=== PATIENT | female | born 1995 | race Caucasian/White ===

== ENCOUNTER 2019-08-25 10:28 | Outpatient (RCR) | payer OTHER, BC, SELFPAY ==
[2019-08-10 10:30] VITALS: BP 114/73; PULSE 120
[2019-08-15 09:33] VITALS: BP 111/71; PULSE 118
[2019-08-18 08:21] VITALS: BP 105/63; PULSE 110
[2019-08-22 08:45] VITALS: BP 111/60; PULSE 118
--- NOTE | ~2019-08-25 | US_ITS ---
EXAMINATION: US OB BPP wo non-stress DATE: 08/22/2019 09:06 CDT INDICATION: Evaluate well-being. IUGR. TECHNIQUE: Real-time transabdominal obstetric ultrasound. FINDINGS: Comparison to ultrasound dated 08/18/2019 There is a single living fetus in vertex presentation. The placenta is posterior without placenta pr evia. cardiac activity and movement is noted with a heart rate of 149 beats per minute. Biophysical profile: breathin of 2 movement: 2 of 2 tone: 2 of 2 Amniotic flud pocket: 2 of 2 Total score: 8 of 8 IMPRESSION: 1. Single living intrauterine in vertex presentation. 2: Total biophysical profile score of 8/8. Reviewed, dictated and finalized at location A.
--- NOTE | ~2019-08-25 | US_ITS ---
EXAMINATION: US OB BPP wo non-stress DATE: 08/10/2019 10:47 INDICATION: Small for gestational age, third trimester TECHNIQUE: Real-time pelvic ultrasound was performed. The interpreting radiologist was not present fo r the study. COMPARISON: None. FINDINGS: There is a single living fetus in vertex presentation. The placenta is fundal/posterior. heart rate is 142 beats per minute (bpm). Biophysical profile performed by the technologist: breathing (30 sec sustained breathing in 30 minutes): 2 out of 2 movement (3 gross body movements in 30 minutes): 2 out of 2 tone (one episode of udsankp-bmbvoybqu-jcnfrke limb movement): 2 out of 2 Amniotic fluid pocket (2 cm): 2 out of 2 Total score: 8 out of 8 IMPRESSION: 1. Single living fetus in vertex presentation. 2. Biophysical profile 8 out of 8. Reviewed, dictated and finalized at location A.
--- NOTE | ~2019-08-25 | US_ITS ---
EXAMINATION: US OB BPP wo non-stress DATE: 08/25/2019 11:31 CDT INDICATION: Evaluate well-being. TECHNIQUE: Real-time transabdominal obstetric ultrasound. FINDINGS: Comparison to 08/22/2019 There is a single living fetus in vertex presentation. The placenta is posterior without placenta pr evia. cardiac activity and movement is noted with a heart rate of 144 beats per minute. Biophysical profile: breathin of 2 movement: 2 of 2 tone: 2 of 2 Amniotic flud pocket: 2 of 2 Total score: 8 of 8 IMPRESSION: 1. Single living intrauterine in vertex presentation. 2: Total biophysical profile score of 8/8. Reviewed, dictated and finalized at location A.
--- NOTE | ~2019-08-25 | US_ITS ---
EXAMINATION: US OB BPP wo non-stress DATE: 08/18/2019 09:02 INDICATION: Intrauterine growth retardation, third trimester TECHNIQUE: Real-time pelvic ultrasound was performed. The interpreting radiologist was not present fo r the study. COMPARISON: 08/10/2019 FINDINGS: There is a single living fetus in vertex presentation. The placenta is posterior. heart rate is 138 beats per minute (bpm). breathing is present but not sustained for 30 seconds. Biophysical profile performed by the technologist: breathing (30 sec sustained breathing in 30 minutes): 0 out of 2 movement (3 gross body movements in 30 minutes): 2 out of 2 tone (one episode of hjskenh-nsvswvjqx-zotofjo limb movement): 2 out of 2 Amniotic fluid pocket (2 cm): 2 out of 2 Total score: 6 out of 8 IMPRESSION: 1. Single living fetus in vertex presentation. 2. Biophysical profile 6 out of 8. breathing present but not sustained for 30 seconds. Reviewed, dictated and finalized at location B. IMPRESSION: 1. Single living fetus in vertex presentation. 2. Biophysical profile 6 out of 8. breathing present but not sustained fo r 30 seconds.
[2019-08-25 10:55] VITALS: BP 102/64; PULSE 108
== END 2019-08-31 07:53 | disposition home or self-care (01) ==
LOC: ANHOBOP 10:28
PROVIDERS: Visit Provider Obstetrics & Gynecology
DX: O36.5930 Maternal care for other known or suspected poor fetal growth, third trimester, not applicable or unspecified (principal); Z3A.35 35 weeks gestation of pregnancy; Z3A.36 36 weeks gestation of pregnancy; Z3A.37 37 weeks gestation of pregnancy
CPT/HCPCS: 59025; 76819

== ENCOUNTER 2019-08-30 06:02 | Inpatient (IN) | payer OTHER, BC, SELFPAY ==
[2019-08-30] VITALS (110 sets, daily range): BP systolic 77–128; BP diastolic 33–98; PULSE 91–248; RESP 18; TEMP 36.8–37.7; O2SAT 96–100; BMI 30.9
[2019-08-30 06:50] LABS: Basophils Absolute Auto 0.1 K/mm3 (0.0-0.1); Basophils Percent Auto 0.7 % (0.2-1.2); Eosinophils Absolute Auto 0.1 K/mm3 (0-0.3); Eosinophils Percent Auto 0.9 % (0-4.4); Hematocrit 34.8 % (37.0-47.0); Hemoglobin 11.6 g/dL (12.0-15.0); Immature Granulocyte Absolute 0.44 K/mm3 (0.00-0.031); Immature Granulocyte Percent A 4.4 % (0-0.5); Lymphocytes Absolute Auto 2.26 K/mm3 (0.9-3.2); Lymphocytes Percent Auto 22.6 % (18.3-44.2); Mean Corpuscular HGB Conc 33.3 g/dl (32-36); Mean Platelet Volume 9.3 fl (7.4-10.4); Monocytes Absolute Auto 0.7 K/mm3 (0.1-0.6); Neutrophils Absolute Auto 6.4 K/mm3 (1.3-6.7); Neutrophils Percent Auto 64.4 % (45.5-73.1); Platelet Count Result 245 k/mm3 (150-375); Red Blood Count 3.74 M/mm3 (4.2-5.4); Red Cell Distribution Width 13.6 % (11.5-14.5)
[2019-08-30] MEDS: LACTATED RINGERS 1,000 ML 125 ML IV CONT ×2 (06:52→10:47)
[2019-08-30] MEDS: OXYTOCIN 30 UNITS/NS 500 ML 30 UNITS/500 ML BAG IV CONT (06:53)
--- NOTE | 2019-08-30 07:06 | LDADM ---
This patient, Mihir Bejarano, was admitted to Labor/Delivery/Recovery 103 on 08/30/19 at 06:02. Plans for labor, pain management and were discussed with patient. Patient/family oriented to hospital policies and general routines including ID bracelet, bed and alarms, visiting hours, pain management, procedures, bathroom and other care routines, personal items, smoking policy, room service/diet and guest tray routines, security routines, and visiting hours. Patient/Family are encouraged to report perceived risks to care and to ask questions if they do not understand what they are told or what they should do. See OBIX for further documentation.
[2019-08-30 07:43] LABS: Rapid Plasma Reagin Non-Reactive (NonReactive)
--- NOTE | 2019-08-30 11:53 | WPDANESEPP ---
Anes - Eval Pre Procedure Procedure: Labor epidural Date/Time: 08/30/19 10:30 Surgeon: Artis Preop Diagnosis: Labor Pain Pre Op Diagnosis: Induction of Labor Patient Data Age: 23 Gender: F Height: 5 ft Weight: 72 kg Last Vital Signs Temp 37.2 C 08/30/19 11:06 Pulse 105 H 08/30/19 11:46 BP 92/55 L 08/30/19 11:46 Pulse Ox 100 08/30/19 11:43 Allergies Allergy/AdvReac Type Severity Reaction Status Date / Time No Known Allergies Allergy Verified 08/11/19 12:32 Home Medications Medication Instructions Recorded Confirmed Type PNV cmb#95-ferrous fumarate-FA 1 tablet PO DAILY 08/11/19 08/11/19 History [] aspirin [Aspirin Low Dose] 81 mg PO DAILY 08/11/19 08/11/19 History Laboratory Tests 08/30/19 08/30/19 08/30/19 06:43 06:43 06:43 WBC 10.0 K/mm3 K/mm3 (4.5-10.0) RBC 3.74 M/mm3 L M/mm3 (4.2-5.4) Hgb 11.6 g/dL L g/dL (12.0-15.0) Hct 34.8 % L % (37.0-47.0) MCV 93.0 fl fl (80-100) MCH 31.0 pg pg (26-34) MCHC 33.3 g/dl g/dl (32-36) RDW 13.6 % % (11.5-14.5) Plt Count 245 k/mm3 k/mm3 (150-375) MPV 9.3 fl fl (7.4-10.4) Immature Gran % (Auto) 4.4 % H % (0-0.5) Neut % (Auto) 64.4 % % (45.5-73.1) Lymph % (Auto) 22.6 % % (18.3-44.2) [place] % (Auto) 7.0 % % (2.6-8.5) Eos % (Auto) 0.9 % % (0-4.4) Baso % (Auto) 0.7 % % (0.2-1.2) Lymph # (Auto) 2.26 K/mm3 K/mm3 (0.9-3.2) [place] # (Auto) 0.7 K/mm3 H K/mm3 (0.1-0.6) Eos # (Auto) 0.1 K/mm3 K/mm3 (0-0.3) Baso # (Auto) 0.1 K/mm3 K/mm3 (0.0-0.1) Abs Immat Gran (auto) 0.44 K/mm3 H K/mm3 (0.00-0.031) Absolute Neuts (auto) 6.4 K/mm3 K/mm3 (1.3-6.7) Absolute Nucleated RBC 0.0 K/mm3 K/mm3 (0.0-0.012) Nucleated RBC % 0.0 % % (0.0-0.2) RPR Non-reactive (NonReactive) Blood Type O Positive Antibody Screen Negative : gestational age (JESSICA 09/10/19) Patient hx anesthesia problems: none Family hx anesthesia problems: none [facility] Family History Family History (Updated 08/11/19 @ 12:36 by Maryana Vora RN) Grandparent Breast cancer Heart attack Cerebrovascular accident Social History Social History Smoking status: Never smoker Second hand tobacco smoke exposure: No Substance use: never Spiritual care concerns: No Exam Day of Procedure 08/30/19 11:53 Patient weight: normal Heart: regular rate and rhythm Lungs: normal air movement Airway: Mallampati scale class 1 Neurological: alert and oriented and dysarthria
--- NOTE | 2019-08-30 11:59 | WPDHPUPDATE1 ---
History and Physical Update Update Date/Time: 08/30/19 11:59 History and Physical has been reviewed, including an updated exam of the patient. There are NO changes in the patient's condition. Risks, benefits, and alternatives have been discussed and questions answered. Patient agrees to proceed with procedure.
--- NOTE | 2019-08-30 12:00 | WPDOBADMIT ---
Obstetrics - Admit Note Admission Note: record reviewed. No pertinent additions to the history and/or any subsequent changes in the physical findings that are not consistent with the expected course of the were found. Additions to the history and/or subsequent changes in the physical findings follow. None.
[2019-08-30] MEDS: PHENYLEPHRINE 1,000 MCG/10 ML SYRINGE 100 MCG IV PUSH (12:48)
[2019-08-30] MEDS: ONDANSETRON INJ 4 MG/2 ML VIAL IV PUSH (13:43)
--- NOTE | 2019-08-30 16:04 | PM.OBPRVD ---
OB - Delivery Note Procedure Delivery date: 08/30/19 Route of delivery: Laceration description: Perineal - 2nd Degree Delivery repair: chromic Specimen: Yes Estimated blood loss (mL): 300 Anesthesia type: Epidural Disposition: floor Narrative: Patient prepped draped usual manner for this procedure. Maternal expulsive efforts readily delivered vertex. Nuchal cord x2 was noted and cord at this point was clamped and cut. Rest of baby was readily delivered without difficulty placed on maternal abdomen. Cervix vagina and vulva were inspected second-degree laceration was noted and proximally using 2 0 chromic in a running interlocking manner on the vaginal tissue deep tissue approximated interrupted sutures and a subcuticular layer with good approximation of the perineum. At this point the placenta delivered without difficulty spontaneously and was uterus at this point was well contracted. Immediate postoperative condition of mother and baby were both excellent. Baby Weeks of gestation at delivery: 38 gender: Male Weight (pounds): 5 Weight (ounces): 13 presentation: vertex score one minute: 8 score five minutes: 8
--- NOTE | 2019-08-30 19:20 | OBPPTRN ---
Patient transferred to post room #291 via wheelchair with baby in bassinet. Support person present. Oriented to unit, room, information board, rooming in, admission packet and security measures. Patient verbalizes understanding.
[2019-08-31 05:21] LABS: Hematocrit 31.1 % (37.0-47.0); Hemoglobin 10.4 g/dL (12.0-15.0)
--- NOTE | 2019-08-31 08:01 | PM.OBDSVD ---
OB - DS: Summary OB Procedures : None OB Procedures Intrapartum: Spontaneous Vag Delivery OB Procedures: : None Time Spent with Patient Time attestation: Total time spent providing and/or coordinating discharge services: DS: Data Data Completed and Pending Pending studies at discharge: Pending at discharge 08/30/19 15:57 Surgical [PTH] Routine Labs on day of discharge: Labs from last 24 hours 08/31/19 08/30/19 04:11 06:43 Hgb 10.4 L Hct 31.1 L Blood Type O Positive Antibody Screen Negative Discharge Plan Discharge Discharging Clinician: Yohannes Wisdom Patient Disposition: Home, Self-Care Activity: as tolerated Diet: as tolerated Patient Instructions: Antibiotic Form Stand Alone Forms: General Discharge Information Follow-up/Referrals: Yohannes Wisdom MD [Physician] - 3 Weeks Discharge Medications: New hydrocodone-acetaminophen 5-325 mg Tablet 1 tab PO Q3H PRN (Reason: Moderate Pain (4-6)) Qty: 20 RF: 0 ibuprofen 600 mg Tablet 600 mg PO Q6H PRN (Reason: Cramping) Qty: 30 RF: 0 Continued PNV cmb#95-ferrous fumarate-FA [] 28 mg iron- 800 mcg Tablet 1 tablet PO DAILY RF: 0 Discontinued aspirin [Aspirin Low Dose] 81 mg Tablet,Delayed Release (Dr/Ec) 81 mg PO DAILY RF: 0 Date of admission: 08/30/19 06:02 Primary Care Provider: UNKNOWN,DOCTOR Admitting Provider: Yohannes Wisdom Attending physician on admission: Yohannes Wisdom
[2019-08-31 08:30] VITALS: BP 109/70; PULSE 109; RESP 18; TEMP 36.5; O2SAT 98
--- NOTE | 2019-08-31 09:18 | WPDANLDPN2 ---
Anes-Prog Note L&D Date/Time: 08/31/19 09:18 Comfortable throughout: labor and delivery Neuraxial method: epidural Epidural/Spinal procedure site: clean & non-tender Neuro status: Neuro function grossly intact. Cardiovascular status: normal Respiratory status: normal Airway patency: baseline Mental status: baseline Post-Op hydration status: normal Vital Signs: Last Vital Signs Temp 37.1 C 08/30/19 19:45 Pulse 110 H 08/30/19 19:45 Resp 18 08/30/19 19:45 BP 104/66 08/30/19 19:45 Pulse Ox 97 08/30/19 19:45 I/O: Intake & Output 08/30/19 08/31/19 08/31/19 23:59 07:59 15:59 Intake Total 0 Output Total 95 Balance -95 Post-procedural complaints: none Patient feedback: Patient satisfied with anesthetic care.
[2019-08-31] MEDS: TETANUS,DIPHTHERIA,AC PERTUSSIS ADULT (0.5 ML) BOOSTRIX IM (12:11)
[2019-09-01 09:50] VITALS: BP 114/72; PULSE 98; RESP 16; TEMP 36.8; O2SAT 99
== END 2019-08-31 16:52 | disposition home or self-care (01) | DRG 807 ==
LOC: ANHLDR 06:04 → ANHOB2 19:21
PROVIDERS: Admitting Provider Obstetrics & Gynecology; Visit Provider Obstetrics & Gynecology
DX: O69.81X0 Labor and delivery complicated by cord around neck, without compression, not applicable or unspecified (principal); Z37.0 Single live birth; Z3A.38 38 weeks gestation of pregnancy; O70.1 Second degree perineal laceration during delivery
CPT/HCPCS: 36415; 85014; 85018; 85025; 86592; 86850; 86900; 86901; 88307; 90715; A9270; J2370; J2405; J2590; J2795; J7120

== ENCOUNTER 2020-01-06 20:43 | Emergency (ER) | payer OTHER, BC, SELFPAY ==
--- NOTE | ~2020-01-06 | CT_ITS ---
EXAMINATION: CT abdomen pelvis w con DATE: 01/07/2020 00:42 INDICATION: Left upper abdominal pain TECHNIQUE: Computed tomography (CT) of the abdomen and pelvis was performed with 100 mL Omnipaque-350 intravenous contrast. Automated exposure control and iterative reconstruction technique were employe d. The dose-length product was 331.67 mGy-cm. COMPARISON: None FINDINGS: Lung bases are clear. Heart size is normal. No pericardial or pleural effusion. Liver, gallbladder, s pleen, pancreas, bilateral adrenal glands and kidneys are normal. Bowels including the appendix are n ormal. Bladder is normal. T-shaped IUD in expected position within the endometrial canal. 8 cm long, 2.7 cm diameter tubular fluid-filled structure at the left adnexa most likely representing a hydrosal pinx. No free intraperitoneal gas or fluid. No pathologically enlarged abdominal or pelvic lymphadeno panfilo. 23 degree thoracolumbar dextroscoliosis between T12 and L3. IMPRESSION: 1. 8 x 2.7 cm tubular fluid filled structure at the left adnexa most likely hydrosalpinx. No adjacent inflammatory stranding or other acute intra-abdominal/pelvic process. 2. IUD in expected position. Reviewed, dictated and finalized at location A. IMPRESSION: 1. 8 x 2.7 cm tubular fluid filled structure at the left adnexa most likely hyd rosalpinx. No adjacent inflammatory stranding or other acute intra-abdominal/pe lvic process. 2. IUD in expected position.
[2020-01-06 20:57] VITALS: BP 106/90; PULSE 95; RESP 16; TEMP 36.7; O2SAT 99
[2020-01-06 21:10] LABS: Basophils Absolute Auto 0.1 K/mm3 (0.0-0.1); Eosinophils Absolute Auto 0.1 K/mm3 (0-0.3); Eosinophils Percent Auto 0.5 % (0-4.4); Hematocrit 42.9 % (37.0-47.0); Hemoglobin 14.9 g/dL (12.0-15.0); Immature Granulocyte Absolute 0.04 K/mm3 (0.00-0.031); Immature Granulocyte Percent A 0.4 % (0-0.5); Lymphocytes Absolute Auto 3.62 K/mm3 (0.9-3.2); Lymphocytes Percent Auto 32.7 % (18.3-44.2); Mean Corpuscular HGB Conc 34.7 g/dl (32-36); Mean Corpuscular Hemoglobin 29.9 pg (26-34); Mean Corpuscular Volume 86.1 fl (80-100); Monocytes Absolute Auto 0.8 K/mm3 (0.1-0.6); Monocytes Percent Auto 7.5 % (2.6-8.5); Neutrophils Absolute Auto 6.4 K/mm3 (1.3-6.7); Neutrophils Percent Auto 57.9 % (45.5-73.1); Platelet Count Result 394 k/mm3 (150-375); Red Blood Count 4.98 M/mm3 (4.2-5.4); Red Cell Distribution Width 11.8 % (11.5-14.5); White Blood Count 11.1 K/mm3 (4.5-10.0)
[2020-01-06 21:13] LABS: Add Urine Microscopic? NO; Appearance Urine Clear (Clear); Bilirubin Urine Negative (Negative); Blood Urine Negative (Negative); Color Urine Colorless (Yellow); Glucose Urine UA Negative (Negative); Ketones Urine Negative (Negative); Leukocyte Esterase Ur Negative LEU/UL (Negative); Nitrate Urine Negative (Negative); Protein Urine Negative (Negative); Specific Grav Ur 1.005 (1.001-1.035); Urobilinogen Urine Negative mg/dL (<2.0)
[2020-01-06 21:22] LABS: Alanine Aminotransferase 36 U/L (4-35); Albumin Level 5.1 g/dL (3.5-5.1); Alkaline Phosphatase 90 U/L (38-126); Anion Gap 12 mmol/L (8-16); Aspartate Amino Transferase 28 U/L (14-36); Bilirubin,Total 0.2 mg/dL (0.2-1.3); Blood Urea Nitrogen 10 mg/dL (7-17); Calcium 10.1 mg/dL (8.4-10.2); Carbon Dioxide 24 mmol/L (22-30); Chloride 101 mmol/L (98-107); Estimated CRCL calculation 81 ml/min; Estimated Glomerular Filt Rate > 60; Glucose 98 mg/dL (65-105); Lipase 42 U/L (23-300); Potassium 3.9 mmol/L (3.4-5.0); Sodium 137 mmol/L (137-145)
--- NOTE | 2020-01-06 23:21 | ED.ABDPAIN ---
HPI - Abdominal Pain General Chief Complaint: Abdominal Pain Stated Complaint: left sided flank pain Time Seen by Provider: 01/06/20 22:48 Source: patient Mode of arrival: ambulatory Limitations: no limitations History of Present Illness HPI narrative: This patient is a 24 year old female who presents for evaluation of left flank pain since . She reports constant left flank pain. She denies exacerbating or alleviating factors. She denies associated nausea, vomiting, fever chills or urinary complaints. She also denies trauma. MD elicited complaint: flank pain Related Data Allergies Allergy/AdvReac Type Severity Reaction Status Date / Time No Known Allergies Allergy Verified 01/06/20 20:43 Review of Systems Review of Systems: All systems reviewed & are unremarkable except as noted in HPI and below Constitutional: Constitutional: Denies chills and Denies fever(s) ENT: Denies sore throat Respiratory: Respiratory: Denies cough and Denies dyspnea Gastrointestinal: Gastrointestinal: Reports abdominal pain, Denies constipation, Denies diarrhea, Denies nausea and Denies vomiting Genitourinary: Genitourinary: Denies hematuria, Denies dysuria, Reports flank pain and Denies vaginal discharge [facility] Past Medical History Medical History (Updated 01/07/20 @ 03:02 by Inocencia Whipple MD) Patient denies medical problems Family History Family History (System 09/01/19 @ 09:17 by Krissy Helton) Grandparent Breast cancer Heart attack Cerebrovascular accident Social History Social History (System 09/01/19 @ 09:17 by Krissy Helton) Smoking status: Never smoker Second hand tobacco smoke exposure: No Substance use: never Gender identity (if verbalized by the patient): Female Spiritual care concerns: No Exam Narrative: Exam Narrative: GENERAL: Well-appearing, well-nourished, and in no acute distress. HEAD: Normocephalic, atraumatic EYES: PERRLA and EOMI, conjunctiva clear without discharge THROAT:Mucous membranes moist, Oropharynx normal without erythema, exudate, peritonsillar swelling or fluctuance NECK: Supple, without lymphadenopathy or mass RESPIRATORY: No respiratory distress, Airway patent, Respirations non-labored, Clear to auscultation without rales, rhonchi or wheeze HEART: Regular rate and rhythm. No murmur heard. Normal peripheral pulses. ABDOMEN: Soft, TTP left mid flank, left upper q at rib cage, nondistended, normal active bowel sounds. No masses. No rebound or guarding, No organomegaly. EXTREMITIES: No edema, normal strength with full range of motion. SKIN: Warm, dry, normal color without rash NEURO: Alert and oriented x3. CN 2-12 grossly intact. No focal deficits. PSYCH: Normal mood and affect. Course Reevaluation(s) Reevaluation #1: I Discussed with patient that labs CT shows possible CT. Her pain is much improved. Her pain is not located left lower abdomen so I do not think that cystic process in adnexa is relevent. I discussed US is unavailable at this time so I recommended follow up with sweet goods machine operator for evaluation and possible ultrasound. Date: 01/07/20 Time: 02:59 Vital Signs Vital signs: Vital Signs Temperature 98.0 F 01/06/20 20:57 Pulse Rate 95 01/06/20 20:57 Respiratory Rate 16 01/06/20 20:57 Blood Pressure 106/90 01/06/20 20:57 Pulse Oximetry 99 01/06/20 20:57 Temperature 98.0 F 01/06/20 20:57 Pulse Rate 78 01/07/20 03:21 Respiratory Rate 16 01/07/20 03:21 Blood Pressure 122/71 01/07/20 03:21 Pulse Oximetry 100 01/07/20 03:21 MDM - Abdominal Pain Lab Data Attestation: I reviewed the patient's lab results. Result diagrams: 01/06/20 21:01 01/06/20 21:01 Labs: Lab Results 01/06/20 01/06/20 01/06/20 Range/Units 21:01 21:01 21:01 WBC 11.1 H (4.5-10.0) K/mm3 RBC 4.98 (4.2-5.4) M/mm3 Hgb 14.9 D (12.0-15.0) g/dL Hct 42.9 (37.0-47.0) % MCV 86.1 (
[2020-01-06 23:40] VITALS: BP 110/87; PULSE 90; RESP 16; O2SAT 99
[2020-01-06] MEDS: KETOROLAC 30 MG/ML VIAL (*BKC) IV PUSH (23:40)
[2020-01-07 00:23] LABS: Partial Thromboplastin Time 31.7 SECONDS (22.3-36.8)
[2020-01-07 00:25] LABS: D Dimer 0.39 ug/mL (<0.48)
[2020-01-07] MEDS: MORPHINE SULFATE 4 MG/ML INJ IV PUSH (00:53)
[2020-01-07] MEDS: ONDANSETRON INJ 4 MG/2 ML VIAL IV PUSH (00:53)
[2020-01-07 00:54] VITALS: BP 135/81; PULSE 92; RESP 18; O2SAT 99
--- NOTE | 2020-01-07 01:15 | PC.NURSE ---
pt rates pain 2-3 at this time. md notified.
[2020-01-07 01:40] VITALS: BP 118/86; PULSE 73; RESP 18; O2SAT 99
--- NOTE | 2020-01-07 02:13 | PC.NURSE ---
pelvic setup complete on pt.
[2020-01-07 03:21] VITALS: BP 122/71; PULSE 78; RESP 16; O2SAT 100
== END 2020-01-07 03:23 | disposition home or self-care (01) ==
PROVIDERS: Family Medicine; Emergency Provider General Practice; PCP Internal Medicine
DX: N83.202 Unspecified ovarian cyst, left side (principal)
CPT/HCPCS: 36415; 74177; 80053; 81003; 81025; 83690; 85025; 85380; 85610; 85730; 87205; 87491; 87591; 87808; 96374; 96375; 99284; J1885; J2270; J2405; Q9967

== ENCOUNTER 2022-05-30 15:33 | Emergency (ER) | payer OTHER, SELFPAY ==
--- NOTE | 2022-05-30 15:53 | ED.URI ---
HPI - URI/Sore Throat General Chief Complaint: Upper Respiratory Infection Stated Complaint: Sore Throat/Ear Pain Time Seen by Provider: 05/30/22 16:05 Source: patient and RN notes reviewed Mode of arrival: ambulatory Limitations: no limitations History of Present Illness HPI Narrative: 26-year-old female presents with concern for 2 day history of sore throat and ear pain. She reports low-grade temperature. She denies fever, chills, sweats MD elicited complaint: sore throat Related Data Allergies Allergy/AdvReac Type Severity Reaction Status Date / Time No Known Allergies Allergy Verified 05/30/22 15:52 Review of Systems Review of Systems: CONSTITUTIONAL: Reports malaise. Denies chills, sweats, or fever. EYES: Denies visual changes, redness, or discharge. ENT: Denies rhinorrhea, congestion, sinus pain. Reports otalgia and sore throat. CARDIOVASCULAR: Denies chest pain, palpitations, or edema. RESPIRATORY: Denies cough. Denies dyspnea. GASTROINTESTINAL: Denies abdominal pain, nausea, vomiting, diarrhea SKIN: Denies rash or itching. MUSCULOSKELETAL: Denies myalgia. NEUROLOGIC: Denies headache. All systems reviewed & are unremarkable except as noted in HPI and below PMFSH Past Medical History Medical History (Updated 05/30/22 @ 16:34 by Emerald Tate NP) Patient denies medical problems Family History Family History (System 09/01/19 @ 09:17 by Krissy Helton) Grandparent Breast cancer Heart attack Cerebrovascular accident Social History Social History (System 09/01/19 @ 09:17 by Krissy Helton) Smoking status: Never smoker Second hand tobacco smoke exposure: No Substance use: never Gender identity (if verbalized by the patient): Female Spiritual care concerns: No Comments At time of signature, agree with nursing past medical, surgical, social and family history. There is no relevant family history pertinent to the presenting complaint Exam Narrative: GENERAL: Well-appearing, well-nourished, and in no acute distress. HEAD: Normocephalic EYES: PERRLA, conjunctivae clear ENT: Nares clear, turbinates edematous and erythematous, clear discharge. Mucous membranes moist. TM pearly agosto with dull light reflex bilaterally; no tragal tenderness. Oropharynx not erythematous without lesions. Tonsils not enlarged and without exudate, no drooling, no hoarseness, no trismus, uvula midline. NECK: Supple. No lymphadenopathy CHEST: Clear to auscultation, breath sounds equal. No wheezing, rhonchi, rales, or stridor. No respiratory distress, speaks in full sentences. HEART: Regular rate and rhythm. No murmur heard. SKIN: Warm, dry, no rash. NEURO: Alert and oriented x3. PSYCH: Normal mood and affect Course Course Emergency Course: Patient is aware of diagnosis, understands and agrees to treatment plan. Anticipatory guidance given. Patient agrees to follow-up as directed and is aware of reasons to seek care at the emergency department. Portions of this record may have been created with voice recognition software Level of Care: Express Care Visit Vital Signs Vital signs: Reviewed. MDM - URI/Sore Throat MDM Narrative Medical decision making narrative: Differential diagnosis considered: Matthews virus, strep pharyngitis, allergic rhinitis, upper respiratory tract infection, sinusitis, rhinosinusitis, nasopharyngitis. viral pharyngitis, otitis media, otitis externa, pneumonia, bronchitis, viral cough syndrome, viral syndrome, and influenza. Exam findings show no acute concerns or changes; patient is non-toxic appearing and is in no distress. Patient is appropriate for outpatient treatment and follow-up. Lab Data Attestation: I reviewed the patient's lab results. Critical Care Time Critical Care Time Critical Care Time: No Discharge Plan Discharge Clinical Impression: Upper respiratory infection Patient Disposition: Home, Self-Care Condition: Stable Instructions: Upper Respiratory In
[2022-05-30 15:59] VITALS: BP 145/80; PULSE 116; RESP 16; TEMP 37.3; O2SAT 99
== END 2022-05-30 16:50 | disposition home or self-care (01) ==
PROVIDERS: Emergency Provider Nurse Practitioner; PCP Emergency Medicine
DX: J06.9 Acute upper respiratory infection, unspecified (principal)
CPT/HCPCS: 87081; 87880; 99213; G0463